=== PATIENT | male | born 1955 | race Caucasian/White ===

== ENCOUNTER 2024-06-01 13:02 | Emergency (ER) | payer OTHER ==
[2024-06-01] MEDS ORDERED: Clindamycin 150 MG CAP ONE (15:20)
== END 2024-06-01 15:28 ==
LOC: NAV ERS 13:02
DX: S63.91XA Sprain of unspecified part of right wrist and hand, initial encounter (principal); S20.212A Contusion of left front wall of thorax, initial encounter; S40.012A Contusion of left shoulder, initial encounter; L03.113 Cellulitis of right upper limb; E78.00 Pure hypercholesterolemia, unspecified; E03.9 Hypothyroidism, unspecified; I10 Essential (primary) hypertension; Z87.891 Personal history of nicotine dependence; Z79.899 Other long term (current) drug therapy; Z79.82 Long term (current) use of aspirin; W18.2XXA Fall in (into) shower or empty bathtub, initial encounter